=== PATIENT | male | born 1970 | race Caucasian/White ===

== ENCOUNTER 2021-01-30 10:32 | Day surgery (SDC) | payer OTHER, BC ==
[2021-01-28 15:41] VITALS: BMI 23.6
[2021-01-30 12:52] VITALS: TEMP 97.8
[2021-01-30 13:01] VITALS: BP 121/65; PULSE 64
== END 2021-01-30 13:03 | disposition home or self-care (01) ==
LOC: FASU-ENDO 10:32
PROVIDERS: ATTEND Internal Medicine Gastroenterology
PROC: 0DB98ZX Excision of Duodenum, Via Natural or Artificial Opening Endoscopic, Diagnostic (ICD-10-PCS; principal; 2021-01-30)
PROC: 0DB68ZX Excision of Stomach, Via Natural or Artificial Opening Endoscopic, Diagnostic (ICD-10-PCS; 2021-01-30)
PROC: 0DB48ZX Excision of Esophagogastric Junction, Via Natural or Artificial Opening Endoscopic, Diagnostic (ICD-10-PCS; 2021-01-30)
DX: K20.90 Esophagitis, unspecified without bleeding (principal); K31.9 Disease of stomach and duodenum, unspecified; R10.13 Epigastric pain
CPT/HCPCS: 88305-TC; 88342-TC

== ENCOUNTER 2022-05-28 10:07 | Day surgery (SDC) | payer OTHER, BC ==
[2022-05-24 11:41] VITALS: BMI 24.3
[2022-05-28] MEDS ORDERED: PROPOFOL 60 ML ONE (12:33)
[2022-05-28 13:58] VITALS: TEMP 97
[2022-05-28 14:01] VITALS: BP 107/66; PULSE 64; RESP 17
== END 2022-05-28 14:21 | disposition home or self-care (01) ==
LOC: FASU-ENDO 10:07
PROVIDERS: ATTEND Internal Medicine Gastroenterology
PROC: 0DB68ZX Excision of Stomach, Via Natural or Artificial Opening Endoscopic, Diagnostic (ICD-10-PCS; 2022-05-28)
PROC: 0DB48ZX Excision of Esophagogastric Junction, Via Natural or Artificial Opening Endoscopic, Diagnostic (ICD-10-PCS; 2022-05-28)
PROC: 0DB98ZX Excision of Duodenum, Via Natural or Artificial Opening Endoscopic, Diagnostic (ICD-10-PCS; principal; 2022-05-28 13:13)
DX: K29.50 Unspecified chronic gastritis without bleeding (principal); K20.90 Esophagitis, unspecified without bleeding
CPT/HCPCS: 88305-TC; 88342-TC

== ENCOUNTER 2024-06-08 09:21 | Day surgery (SDC) | payer OTHER, BC ==
[2024-06-04 15:18] VITALS: BMI 24.3
[2024-06-08 12:31] VITALS: BP 101/65; PULSE 65; RESP 18; TEMP 98
== END 2024-06-08 12:40 | disposition home or self-care (01) ==
LOC: FASU-ENDO 09:21
PROVIDERS: ATTEND Internal Medicine Gastroenterology
PROC: 0DJD8ZZ Inspection of Lower Intestinal Tract, Via Natural or Artificial Opening Endoscopic (ICD-10-PCS; principal; 2024-06-08 11:35)
DX: Z12.11 Encounter for screening for malignant neoplasm of colon (principal); K57.30 Diverticulosis of large intestine without perforation or abscess without bleeding; K64.1 Second degree hemorrhoids; Z86.0109 Personal history of other colon polyps